=== PATIENT | male | born 1995 ===

== ENCOUNTER 2021-08-07 17:09 | Emergency (ER) | payer SELFPAY | END 2021-08-07 19:00 | disposition home or self-care (01) | LOC: MW.ED 17:09 | DX: S92.312A Displaced fracture of first metatarsal bone, left foot, initial encounter for closed fracture (principal); W20.8XXA Other cause of strike by thrown, projected or falling object, initial encounter | CPT/HCPCS: 73630-26-LT; 73630-LT; 99283; 99283-25 ==

== ENCOUNTER 2021-08-11 20:27 | Emergency (ER) | payer SELFPAY ==
[2021-08-11 21:58] LABS: BLOOD UREA NITROGEN,BUN 12 mg/dL (7.0-18.0); CARBON DIOXIDE,CO2 29.8 mmol/L (21.0-32.0); CHLORIDE,CL 103 mmol/L (98-107); GLUCOSE RANDOM 102 mg/dL (74-106); POTASSIUM,K 4.6 mmol/L (3.5-5.1); SODIUM,NA 137 mmol/L (136-148)
[2021-08-11 22:07] LABS: ESTIMATED GFR > 60.0 ml/min
== END 2021-08-11 22:40 | disposition home or self-care (01) ==
LOC: MW.ED 20:27
DX: R07.9 Chest pain, unspecified (principal); R42 Dizziness and giddiness
CPT/HCPCS: 36415; 80053; 85025; 93005; 93010; 99284; 99285-25